=== PATIENT | female | born 1975 | race Caucasian/White ===

== ENCOUNTER 2016-03-23 09:08 | Emergency (ER) | payer MEDICAID ==
[~2016-03-23] VITALS: Ht 157.5 cm; Wt 93.0 kg
[2016-03-23 09:22] VITALS: BP 124/55
[2016-03-23] MEDS ORDERED: cefTRIAXone SOD 1,000 MG VL IM ONE (09:30)
[2016-03-23] MEDS ORDERED: methylPREDNISolone SOD SUCC 125 MG/2 ML VL IM ONE (09:30)
== END 2016-03-23 10:06 | disposition home or self-care (01) ==
LOC: ER 09:09
DX: K08.89 Other specified disorders of teeth and supporting structures (principal); L03.211 Cellulitis of face; K02.9 Dental caries, unspecified
CPT/HCPCS: 96372; 99284; J0696; J2930